=== PATIENT | female | born 1950 | race Caucasian/White ===

== ENCOUNTER 2018-07-01 15:04 | Observation (INO) | payer BC, OTHER ==
[2018-07-01 16:17] VITALS: BMI 32.5
[2018-07-01 16:59] LABS: Urine Appearance CLEAR; Urine Bilirubin NEGATIVE (NEG); Urine Blood NEGATIVE (NEG); Urine Color YELLOW; Urine Glucose NEGATIVE (NEG); Urine Protein NEGATIVE (NEG); Urine Specific Gravity <=1.005 (1.005-1.030); Urine Urobilinogen 0.2 mg/dL (0.2-1.0); Urine pH 6.5 (5.0-7.0)
[2018-07-01 17:10] LABS: Urine Microscopic Reflex NO UMIC
[2018-07-01 17:24] LABS: Absolute Lymphocytes (CBC) 1.5 K/uL (0.7-4.9); Absolute Monocytes 0.7 K/uL (0.1-1.3); Absolute Neutrophil 8.5 K/uL (1.8-8.0); Basophils % 0.7 % (0-1.3); Eosinophils % 0.3 % (0-4.4); Hematocrit 42.1 % (36.0-45.0); Lymphocytes % 13.9 % (15.3-44.8); MPV 8.3 fL (7.6-11.3); Monocytes % 6.8 % (3.3-12.3); RBC Red Blood Cell Count 4.78 M/uL (3.86-4.86)
[2018-07-01] MEDS: ENOXAPARIN 100 MG/ML SYR SQ SCH (17:29)
[2018-07-01 17:44] LABS: Albumin 4.1 g/dL (3.4-5.0); Bilirubin Total 0.7 mg/dL (0.2-1.0); Potassium 4.2 mmol/L (3.5-5.1); Protein, Total 7.4 g/dL (6.4-8.2); Thyroid Stimulating Hormone 1.77 uIU/mL (0.360-3.740)
[2018-07-01] MEDS ORDERED: METOPROLOL TAR 50 MG TAB PO ONE (18:00)
[2018-07-01] MEDS: ACETAMINOPHEN 500 MG TAB PO PRN (18:26)
--- NOTE | 2018-07-01 19:40 | RAD REPORT ---
EXAM DESCRIPTION: Conor Solorio And Aubrey (2 Views)07/01/2018 7:25 pm CLINICAL HISTORY: Atrial fibrillation COMPARISON: None FINDINGS: The lungs appear clear of acute infiltrate. The heart is borderline enlarged Calcified granulomas present within the right lung IMPRESSION: No acute abnormalities displayed
[2018-07-01] MEDS ORDERED: D50W 25 GM/50 ML SYRINGE IV PRN ×2 (20:05→21:45)
[2018-07-01] MEDS ORDERED: GLUCAGON 1 MG/VIAL IM PRN ×3 (20:05→21:45)
[2018-07-01] MEDS ORDERED: INSULIN -REGULAR HUMAN 50 UNIT/0.5 ML ML SQ SCH (21:00)
[2018-07-01] MEDS ORDERED: HOME MED 1 EA UNK (Pravastatin Sodium [Pravachol] 20 MG) PO SCH (21:00)
[2018-07-01] MEDS ORDERED: METOPROLOL TAR 50 MG TAB PO SCH (21:00)
[2018-07-01] MEDS ORDERED: D50W 25 GM/50 ML VIAL IV PRN (21:42)
[2018-07-01] MEDS ORDERED: ATORVASTATIN 10 MG TAB PO SCH (22:00)
--- NOTE | 2018-07-02 00:02 | CON ---
Reason For Consult: Atrial fibrillation. History Of Present Illness: Mrs. Christensen has enjoyed good health most of her life. She does have de generative joint disease and severe pain and she takes blood pressure medicine, medicines for diabete s and dyslipidemia. She has never had myocardial infarction or stroke. Never had atrial fib before. She was not aware that she had atrial fibrillation. She was seeing Dr. Howe for an unrelated reas on. Rapid heart rate was noted. An EKG was done. It indicated atrial fibrillation and he placed he r in the hospital. The patient thinks she may have been in atrial fibrillation for several months. She has been feeling different, lightheaded, and uncomfortable. She attributed this to the fact that she lost her . She thought she was having panic attacks, anxiety spells, but in retrospect s he thinks it is probably atrial fibrillation. Social History: The patient does not use tobacco. No illegal drugs. Rare alcohol. No history of c oronary heart disease or other vascular disease. Physical Examination: General: She is alert, oriented, pleasant, 5 feet 4 inches, 190 pounds. Vital Signs: Blood pressure 167/82; heart rate 123, irregularly irregular; respirations 16; O2 satur ation 97% on room air. Lungs: No murmur, rub, or gallop. Abdomen: Soft. Extremities: No cyanosis, clubbing, or edema. Distal pulses normal. Impression: The patient's atrial fibrillation is not new onset, but probably several months duration . I would recommend we anticoagulate her, we can certainly use Xarelto instead of Lovenox. We could start that tomorrow night. Let her get Lovenox tomorrow morning as well and we should slow her hear t rate. A beta-kostas would be preferred, and we will see if we can get her heart rate in the 70s t o 80 range using metoprolol. If so, she could be discharged to be anticoagulated for 3 weeks, at [facility] we could safely cardiovert her, but I would not recommend a cardioversion now, chemical or e lectrical, because of the fact that the atrial fibrillation is most likely of several months duration . Thank you very much for your kind referral of Mrs. Christensen. I will follow her with you. QUAN Voice ID: [id number] Report ID: [id number]
[2018-07-02] MEDS: ACETAMINOPHEN 500 MG TAB PO PRN ×3 (00:30→16:50)
[2018-07-02] MEDS: METOPROLOL TAR 50 MG TAB PO SCH ×2 (06:19→16:47)
[2018-07-02] MEDS: INSULIN GLARGINE HUM REC ANLOG 32 UNIT SQ SCH ×2 (09:00)
[2018-07-02] MEDS: LISINOPRIL 20 MG TAB PO SCH ×2 (09:00→09:48)
[2018-07-02] MEDS ORDERED: HOME MED 1 EA UNK (Omega-3/Dha/Epa/Fish Oil [Fish Oil 500 Mg Softgel] 500 MG) PO SCH (09:00)
--- NOTE | 2018-07-02 09:31 | PN ---
Mrs. Christensen's heart rate is adequately controlled. I would recommend she be discharged home taking metoprolol and Xarelto. The metoprolol should be 50 b.i.d. and could be in a slow release form. The Xarelto should be 20 mg once a day at supper time. After a period of 3 weeks, we should have an out patient visit and consider cardioversion. I would not recommend doing any cardioversion right now. I suspect she has been in atrial fib for months. QUAN Voice ID: [id number] Report ID: [id number] MTDD
[2018-07-02] MEDS: ENOXAPARIN 100 MG/ML SYR SQ SCH (09:37)
[2018-07-02] MEDS: INSULIN -REGULAR HUMAN 50 UNIT/0.5 ML ML SQ SCH ×3 (09:48→16:30)
[2018-07-02 13:17] VITALS: BP 100/60
[2018-07-02 13:35] VITALS: O2SAT 98
--- NOTE | 2018-07-02 14:28 | ECHO ---
HEIGHT: 5 ft 4 in WEIGHT: 190 lb 0 oz DATE OF STUDY: 07/02/[address]: Hayden Howe MD 2-DIMENSIONAL: YES M.MODE: YES DOPPLER: YES COLOR FLOW: YES TDS: PORTABLE: DEFINITY: BUBBLE STUDY: DIAGNOSIS: NEW ONSET ATRIAL FIBRILLATION. CARDIAC HISTORY: CATHERIZATION: NO SURGERY: NO PROSTHETIC VALVE: NO PACEMAKER: NO MEASUREMENTS (cm) DIASTOLIC (NORMALS) SYSTOLIC (NORMALS) IVSd 1.0 (0.6-1.2) LA Diam 4.0 (1.9-4.0) LVEF 58% LVIDd 4.2 (3.5-5.7) LVIDs 2.9 (2.0-3.5) %FS 30% LVPWd 0.9 (0.6-1.2) Ao Diam 2.6 (2.0-3.7) 2 DIMENSIONAL ASSESSMENT: RIGHT ATRIUM: NORMAL LEFT ATRIUM: NORMAL RIGHT VENTRICLE: NORMAL LEFT VENTRICLE: NORMAL TRICUSPID VALVE: NORMAL MITRAL VALVE: MITRAL ANNULAR CALCIFICATION PULMONIC VALVE: NORMAL AORTIC VALVE: NORMAL PERICARDIAL EFFUSION: NONE AORTIC ROOT: NORMAL LEFT VENTRICULAR WALL MOTION: NORMAL DOPPLER/COLOR FLOW: NORMAL COMMENTS: NORMAL LEFT VENTRICULAR EJECTION FRACTION. ATRIAL FIBRILLATION HEART RATE 67 BEATS PER MINUTE. MITRAL ANNULAR CALCIFICATION. TECHNOLOGIST: JOSIE RIVAS
[2018-07-02] MEDS ORDERED: RIVAROXABAN 20 MG TABLET PO SCH (17:00)
[2018-07-02 17:35] VITALS: TEMP 99.2
--- NOTE | 2018-07-03 03:44 | HP ---
Date of Admission: 07/01/2018 Chief Complaint: Atrial fibrillation. History Of Present Illness: A 68-year-old female was brought to the office for a regular visit. How ever, she was found to have tachycardia with irregular rhythm compatible with atrial fibrillation. E KG done confirmed the diagnosis. The patient is admitted for initial management. The patient denied any chest pain or palpitations, however, she felt dyspneic on exertion. Past Medical History: Positive for hypertension, type 2 diabetes, hyperlipidemia, osteoarthritis. Family History: Hypertension present. Personal History: Nonsmoker. Allergies: CODEINE, IODINE. Home Medicines: Please refer to the chart. Review of Systems: No history of chest pain. Physical Examination: General: Revealed a 68-year-old female, not in acute distress. HEENT: No thyromegaly. Neck: Supple. JVD negative. Chest: Clear. Heart: Irregular, tachycardia. Abdomen: Soft. Extremities: No edema. Laboratorydata: Thyroid normal. Chest x-ray done in the hospital showed no positive findings. Echocardiogram done at the hospital showed a normal LV function. Assessment: 1.New onset atrial fibrillation, duration unknown. 2.Hypertension. 3.Hyperlipidemia. 4.Type 2 diabetes, requiring insulin. Plan: The patient has been given metoprolol. She is controlled from the . She will be di scharged home on Xarelto, Lopressor. She will be advised not to take meloxicam anymore. GE/SAM Voice ID: [id number]
== END 2018-07-02 18:20 | disposition home or self-care (01) ==
LOC: 4TH 15:55
PROVIDERS: ADMIT Internal Medicine; ATTEND Internal Medicine
DX: I48.91 Unspecified atrial fibrillation (principal); I10 Essential (primary) hypertension; E11.9 Type 2 diabetes mellitus without complications; E78.5 Hyperlipidemia, unspecified; M19.90 Unspecified osteoarthritis, unspecified site
CPT/HCPCS: 36415; 71046; 80053; 81003; 82962; 84443; 85025; 87040; 93005; 93306; G0378; J1650